=== PATIENT | male | born 1985 | race Caucasian/White ===

== ENCOUNTER 2019-04-17 08:11 | Day surgery (SDC) | payer OTHER ==
[~2019-04-17 08:11] MED LIST: cefTRIAXone 2 GM VIAL ONE
[2019-04-17] MEDS ORDERED: LIDOCAINE 2% 10 ML MDV SUBQ ONE (08:12)
[2019-04-17] MEDS ORDERED: PROPOFOL 200 MG/20 ML VIAL IVP ONE (08:12)
[2019-04-17] MEDS ORDERED: MIDAZOLAM 2 MG/2 ML VIAL IVP ONE (08:12)
[2019-04-17] MEDS ORDERED: fentaNYL 100 MCG/2 ML VIAL IVP ONE (08:12)
[2019-04-17] MEDS ORDERED: LACTATED RINGERS 1,000 ML IV ONE ×2 (08:52→11:48)
--- NOTE | 2019-04-17 08:56 | ANESTHESIA ---
Pre-Anesthesia VS, & Labs - NPO Other (coffee at 0600) - Lab Results Lab results reviewed: No <GURWINDER PAUL - Last Filed: 04/17/19 08:54> - NPO >8 hours <Sandra Newberry - Last Filed: 04/17/19 10:11> - Diagnosis Left shoulder posterior labrum tear (GURWINDER PAUL) - Procedure Left shoulder scope, labrum repair (GURWINDER PAUL) Vital Signs: Temp Pulse Resp BP Pulse Ox 35.9 C L 74 16 126/78 100 04/17/19 08:20 04/17/19 08:20 04/17/19 08:20 04/17/19 08:20 04/17/19 08:20 Height 5 ft 10 in Weight (kg) 81.65 kg Home Medications and Allergies <GURWINDER PAUL - Last Filed: 04/17/19 08:54> <Sandra Newberry - Last Filed: 04/17/19 10:11> Home Medications: Ambulatory Orders Methylphenidate HCl [Concerta] 18 mg PO DAILY 04/11/19 Methylphenidate HCl [Concerta] 36 mg PO AC 04/11/19 Methylphenidate HCl [Concerta] 18 mg PO DAILY 04/11/19 Methylphenidate HCl [Concerta] 36 mg PO AC 04/11/19 Allergies/Adverse Reactions: Allergies Allergy/AdvReac Type Severity Reaction Status Date / Time No Known Drug Allergies Allergy Verified 04/11/19 11:46 Anes History & Medical History - Anesthetic History Anesthesia Complications: reports: No previous complications Family history of Anesthesia Complications: Denies Family history of Malignant Hyperthermia: Denies - Medical History Cardiovascular: reports: None Pulmonary: reports: None Gastrointestinal: reports: None Urinary: reports: None Neuro: reports: Other (PTSD) Musculoskeletal: reports: Other Endocrine/Autoimmune: reports: None Blood Disorders: reports: None Skin: reports: None Smoking Status: Current every day smoker Psychosocial: reports: Other (Vapes every day) - Surgical History General: Other <GURWINDER PAUL - Last Filed: 04/17/19 08:54> Exam General: Alert, Oriented x3 Dental: WNL Mouth Opening: Greater than 4 Fingerbreadths Neck Mobility: Normal Mallampati classification: I Thyromental Distance: greater than 6 cm Respiratory: Lungs clear Cardiovascular: Regular rate Neurological: Normal speech Mental/Cognitive Status: Alert/Oriented X3 Cognitive Status: Within normal limits <GURWINDER PAUL - Last Filed: 04/17/19 08:54> Plan Anesthesia Type: General, Interscalene Block Consent for Procedure(s) Verified and Reviewed: Yes Code Status: Attempt Resuscitation ASA classification: 2-Mild systemic disease Is this case an emergency?: No <GURWINDER PAUL - Last Filed: 04/17/19 08:54> Anesthesia Type: General, Interscalene Block Consent for Procedure(s) Verified and Reviewed: Yes Code Status: Attempt Resuscitation ASA classification: 2-Mild systemic disease Is this case an emergency?: No <Sandra Newberry - Last Filed: 04/17/19 10:11>
[2019-04-17] MEDS ORDERED: EPINEPHrine 1 MG/ML AMP ONE (09:34)
[2019-04-17] MEDS ORDERED: BUPIVACAINE 0.25% PF 30 ML VIAL ONE (11:57)
[2019-04-17] MEDS ORDERED: BUPIVACAINE 0.25% PF 30 ML VIAL SUBQ ONE (12:43)
[2019-04-17] MEDS ORDERED: ONDANSETRON 4 MG/2 ML VIAL IVP PRN (13:05)
[2019-04-17] MEDS ORDERED: oxyCODONE 5 MG TABLET PO PRN (13:05)
[2019-04-17] MEDS ORDERED: ACETAMINOPHEN 1,000 MG/100 ML 100 ML IV ONE (13:22)
--- NOTE | 2019-04-17 13:29 | OPERATIVE REPORT ---
Operative Report - Other Other Information/Narrative: Date of Surgery: 17 April 2019 Pre-Op Diagnosis: Left shoulder instability and pain. Biceps tendinitis Procedure: Left shoulder arthroscopy with anterior rotator cuff repair. Posterior capsulorrhaphy. Open biceps tenodesis Postop Diagnosis: Left shoulder subscapularis tear, biceps tendinitis, posterior capsule laxity Primary Surgeon: Isac Rodriguez Secondary Surgeon: Ar Friend Complications: None EBL: 25 cc IMPLANTS: Arthrex double loaded 5.5 mm corkscrew Arthrex fiber tack POSTOPERATIVE PLAN: 0-2 weeks-Sling at all times. Pendulum exercises 5 times per day. 2-6 weeks-Passive and active range of motion. Forward flexion to 90 degrees. Abduction to 90 degrees. External rotation to neutral. 6-12 weeks-Gradually increase external rotation at 10 degrees/week. Full active forward flexion and abduction is allowed. 12 weeks-gradual increase in strengthening is allowed. 16 weeksmay begin strengthening EXAMINATION UNDER ANESTHESIA: ROM: Full Anterior load and shift: Stable Posterior load and shift: Grade 1 instability Inferior sulcus: Stable ARTHROSCOPIC FINDINGS: Rotator interval: Injected Biceps tendon & SLAP: Large type I SLAP tear that extended to the anchor making it a partial type II Subscapularis: Partial articular sided tear involving the upper 50% of the tendon and 5 mm with. This was repaired with a double loaded swivel lock Rotator Cuff: Superior and posterior cuff was intact HAGL: None Labrum: No tears. There was a slight crack posteriorly that was very stable on probing Glenoid Cartilage: Normal Humeral Head Cartilage: Normal INDICATION FOR SURGERY: 34-year-old male who sustained a shoulder injury 6 years ago and has had continued pain and dysfunction since that time. He has failed an extended course of nonoperative treatment. Nonoperative managment failed to resolve symptoms. The risks, benefits, and alternatives were discussed. Risks included pain, bleeding, infection, damage to nearby structures, lack of symptom relief, implant complications, stiffness, need for further surgeries, DVT, PE, stroke, and even . He signed a written consent form. PROCEDURE IN DETAIL: The patient was met in the preoperative holding on the day of the procedure. Operative extremity was signed. Consent was verified. They desired to proceed. Regional anesthesia was obtained in the preoperative area. They were brought to the operating room and surrendered to anesthesia. Once general anesthesia was obtained they were placed in the lateral decubitus position with the operative side up. An axillary roll was placed and all bony prominences were well-padded. A surgical timeout was held to confirm the patient procedure, identity, procedure, laterality, allergies, images, and antibiotics. All were in agreement we proceeded. A standard diagnostic arthroscopy was performed utilizing posterior and anterosuperior portals. The anterosuperior portal was created under direct visualization and localized with a spinal needle. The 7 mm cannula was placed anteriorly. The findings of the diagnostic arthroscopy can be found above. Through the 7 mm cannula I then proceeded to prepare the subscapularis by debriding the torn portions with a sucker shaver. The articular sided portion of the tendon had retracted back to near level of the glenoid and this was off from the middle glenohumeral ligament. A Spenser complex was appreciated. I then performed a 3 sided release of the subscapularis ensuring there was room to work anteriorly to it superiorly to it as well as posterior to it. I then used a rasp to debride the bone at the insertion site, and the shaver and bur was used to debride the bone to a bleeding bed. A second cannula was then placed at the mid glenoid location allowing for insertion of the anchor. I then placed the corkscrew just off the articular surface. The scorpion was used to pass a horizontal mattress suture from posterior to anterior through the torn and retracted portions of the subscapularis. I then placed the other suture in a single pass fashion at the upper rolled border. I then tied the inferior knot with a modified rotor and 4 1/2 hitches alternating posts on the anterior surface of the subscapularis and this was seen to reduce t he tendon very nicely down to the insertion site, this brought a small amount of the middle glenohumeral ligament with it. I then tied the upper suture as well which secured the upper rolled border very nicely. I then probed the repair extensively and found it to be stable. The arm was moved through internal and external rotation and it was stable. I then viewed from the front looking in the back I saw that there is a rent in the capsule adjacent to my portal site. I then pulled back the posterior cannula and used a BirdBeak to pass a free #2 suture through the capsular rent inferior and superiorly. With the cannula pulled back I then tied a non-sliding knot in this reduce the volume of the posterior capsule nicely. I then probed the posterior capsule and the labrum extensively and found that the labrum was stable. Final pictures were then taken. Balance suspension was removed from the arm and the humeral head was found to be well centered in the glenoid. MINI OPEN BICEPS TENODESIS: A 5 cm incision was made near the axillary fold centered over the pectoralis major tendon. Electrocautery was used to obtain hemostasis. The fascia was opened with dissection scissors. Blunt digital dissection was used to identify the intertubercular groove just under the pectoralis major tendon. The long head of the biceps tendon was visualized within this interval. The short head of the biceps was retracted with my finger and the right angle was used to deliver the tendon of the long head of the biceps out of the wound. A martin elevator was then used to debride all synovial tissue from the intertubercular groove. A fibertack was placed high within the groove. Both limbs of the fibertack were pulled on and it was well fixed. I then whipstitched the biceps tendon starting 2 cm proximal to the musculotendinous junction down to the musculotendinous junction and back up to the same 2 cm location with a single limb of the suture tack. The other suture was placed once through the tendon at the 2 cm location. I then cut all excess tendon off. The suture limb that was passed the single time was then pulled on and this reduced the tendon nicely into the groove. The elbow was fully straightened and there was no excess tension on the repair site. I then tied 7 reverse half hitches alternating to secure the tendon in its place. The wound was then irrigated copiously. The portal sites were then closed with 3-0 Monocryl buried. Any open incisions were closed with 2-0 Vicryl in the dermis and a running 3-0 Monocryl in the skin. Mastisol and Steri-Strips were applied. A sterile dressing and a sling was applied. A sling was placed. The patient was awakened and transferred to the recovery room.
[2019-04-17 14:18] VITALS: BP 123/77
== END 2019-04-17 08:12 | disposition home or self-care (01) ==
LOC: SDS 08:11
PROVIDERS: ATTEND Orthopaedic Surgery
PROC: 0LQ24ZZ Repair Left Shoulder Tendon, Percutaneous Endoscopic Approach (ICD-10-PCS; 2019-04-17)
PROC: 0LS20ZZ Reposition Left Shoulder Tendon, Open Approach (ICD-10-PCS; 2019-04-17)
PROC: 0RQK4ZZ Repair Left Shoulder Joint, Percutaneous Endoscopic Approach (ICD-10-PCS; principal; 2019-04-17 09:45)
DX: S43.432A Superior glenoid labrum lesion of left shoulder, initial encounter (principal); S46.012A Strain of muscle(s) and tendon(s) of the rotator cuff of left shoulder, initial encounter; M75.22 Bicipital tendinitis, left shoulder; M25.312 Other instability, left shoulder; F17.290 Nicotine dependence, other tobacco product, uncomplicated